=== PATIENT | male | born 1950 | race Caucasian/White ===

== ENCOUNTER 2018-05-04 16:53 | Emergency (ER) | payer MEDICARE, MEDICAID ==
[~2018-05-04] VITALS: Ht 182.9 cm; Wt 92.1 kg
[2018-05-04 17:15] VITALS: BP 98/64
[2018-05-04 18:13] LABS: BASOPHILS % (AUTO) 0.6 % (0.0-2.0); HEMATOCRIT 41.5 % (42.0-52.0); LYMPHOCYTES % (AUTO) 27.8 % (20.0-45.0); MEAN CORPUSCULAR VOLUME 90 FL (80-99); MONOCYTES % (AUTO) 6.8 % (1.0-10.0); NEUTROPHILS % (AUTO) 63.7 % (45.0-75.0); PLATELET COUNT 237 K/UL (150-450); RED BLOOD COUNT 4.59 M/UL (4.70-6.10); RED CELL DISTRIBUTION WIDTH 11.5 % (11.6-14.8); WHITE BLOOD COUNT 8.6 K/UL (4.8-10.8)
--- NOTE | 2018-05-04 18:22 | Emergency Room Report ---
History of Present Illness General Chief Complaint: General Complaint Source: Patient Present Illness HPI 67-year-old male with history of hypertension, diabetes, coronary disease, recent nonemergent cardiac catheterization with a single stent placed 4 days ago presents with a low heart rate, found that it was 47 other today, but he has no symptoms at all. He denies feeling lightheaded, palpitations, syncope, near syncope, but does report that he felt chest discomfort earlier today and so he decided he should get checked out for a friend. He has no chest discomfort, no sugars breath, no fevers, no symptoms at all. Patient does not know what blood pressure medications he is on, but he does report taking a medication that starts with a L and ends with an L, as well as a medication that starts with an N. Allergies: Coded Allergies: No Known Allergies (Unverified , 05/04/18) Patient History Past Medical History: see triage record Reviewed Nursing Documentation: PMH: Agreed; PSxH: Agreed Nursing Documentation-PMH Past Medical History: No History, Except For Hx Cardiac Problems: Yes - stent placement Hx Hypertension: Yes Hx COPD: Yes Review of Systems All Other Systems: negative except mentioned in HPI Physical Exam Vital Signs Date Time Temp Pulse Resp B/P (MAP) Pulse Ox O2 Delivery O2 Flow Rate FiO2 05/04/18 17:04 97.9 63 18 142/89 92 Room Air 97.9 Sp02 EP Interpretation: reviewed, normal General Appearance: no apparent distress, alert, non-toxic Head: normocephalic Eyes: bilateral eye normal inspection, bilateral eye PERRL, bilateral eye EOMI ENT: normal ENT inspection, hearing grossly normal, normal pharynx, no angioedema, normal voice, moist mucus membranes Neck: normal inspection, full range of motion, supple, supple/symm/no masses Respiratory: chest non-tender, lungs clear, normal breath sounds, chest symmetrical, palpation of chest normal Cardiovascular #1: normal peripheral pulses, regular rate, rhythm, no edema, no gallop, no JVD, no murmur, no rub Cardiovascular #2: 2+ radial (R), 2+ radial (L) Gastrointestinal: normal inspection, non tender, soft, no mass, no guarding, no rebound Rectal: deferred Genitourinary: normal inspection, no CVA tenderness Musculoskeletal: back normal, gait/station normal, normal range of motion, non- tender, no calf tenderness Neurologic: alert, responsive, ticket collector or usher III-XII nml as tested, motor strength/tone normal, sensory intact, speech normal Psychiatric: judgement/insight normal, memory normal, mood/affect normal Skin: normal color, no rash, warm/dry, normal turgor Lymphatic: no adenopathy Medical Decision Making Diagnostic Impression: Primary Impression: Bradycardia ER Course It's unclear what patient's medications are, but I requested that he hold the medication that starts with an L and ends in an L in case it is labetalol. He is nondiabetic, and other than cholesterol medications and blood pressure medications and aspirin, he does not take any medications at all. I asked whether he takes a blood thinner such as Plavix or Effient, and he reported no. I did request that he follow up with his primary doctor tomorrow or his mis specialist tomorrow for repeat evaluation of his blood pressure and to make an entire list of his blood pressure medications and all of his medications general and take it with him to his doctor's office. Diagnosis asymptomatic bradycardia, will discharge home. Patient with no chest pain at all here. EKG Diagnostic Results EKG Time: 17:47 EP Interpretation: Sinus bradycardia, rate 50, no ST segment changes, no T- wave inversions, no Rate: bradycardiac Rhythm: other - Sinus bradycardia ST Segments: no acute changes Rhythm Strip Diag. Results Rhythm Strip Time: 18:20 EP Interpretation: yes Rate: 54 Rhythm: NSR, no PVC's, no ectopy Chest X-Ray Diagnostic Results Chest X-Ray Diagnostic Results : Chest X-Ray Ordered: Yes # of Views/Limited/Complete: 1 View Indication: Other EP Interpretation: Yes Interpretation: no consolidation, no effusion, no pneumothorax, no acute cardiopulmonary disease Impression: No acute disease Electronically Signed by: Christopher Bonilla MD Last Vital Signs Date Time Temp Pulse Resp B/P (MAP) Pulse Ox O2 Delivery O2 Flow Rate FiO2 05/04/18 17:04 97.9 63 18 142/89 92 Room Air 97.9 Disposition: HOME, SELF-CARE Condition: Stable CHRISTOPHER BONILLA M.D May 04, 2018 18:22
[2018-05-04 18:29] LABS: ANION GAP 8 mmol/L (5-15); BLOOD UREA NITROGEN 26 mg/dL (7-18); CALCIUM 9.3 MG/DL (8.5-10.1); CARBON DIOXIDE 26 MMOL/L (21-32); CHLORIDE 106 MMOL/L (98-107); CREATININE 0.9 MG/DL (0.55-1.30); POTASSIUM 4.5 MMOL/L (3.5-5.1); SODIUM 140 MMOL/L (136-145)
[2018-05-04 18:42] LABS: ALANINE AMINOTRANSFERASE 31 U/L (12-78); ALBUMIN 3.9 G/DL (3.4-5.0); ALBUMIN/GLOBULIN RATIO 1.1 (1.0-2.7); ALKALINE PHOSPHATASE 64 U/L (46-116); ASPARTATE AMINO TRANSFERASE 18 U/L (15-37); BILIRUBIN,TOTAL 0.3 MG/DL (0.2-1.0); CKMB 2.2 NG/ML (0.0-3.6); CREATINE KINASE 132 U/L (26-308)
[2018-05-04 19:06] VITALS: BP 107/68
--- NOTE | 2018-05-05 08:38 | Diagnostic Imaging Report ---
Indication: Chest pain Technique: One view of the chest Comparison: none Findings: Lungs and pleural spaces are clear. The heart size is normal. The aorta is tortuous calcified and ectatic. Impression: No acute process no acute process
--- NOTE | 2018-05-05 14:19 | Cardiology Report ---
APPROVED REPORT EKG Measurement Heart [id number] Sinus bradycardia Septal infarct, age undetermined Abnormal ECG
== END 2018-05-04 19:08 | disposition home or self-care (01) ==
LOC: EMR 18:53
DX: R00.1 Bradycardia, unspecified (principal); I10 Essential (primary) hypertension; E11.9 Type 2 diabetes mellitus without complications; I25.10 Atherosclerotic heart disease of native coronary artery without angina pectoris; J44.9 Chronic obstructive pulmonary disease, unspecified; Z98.61 Coronary angioplasty status; Z79.02 Long term (current) use of antithrombotics/antiplatelets
CPT/HCPCS: 36415; 71045; 80053; 82550; 82553; 84484; 85025; 93005; 99283